=== PATIENT | female | born 1930 | race Caucasian/White ===

== ENCOUNTER 2016-02-12 14:35 | Emergency (ER) | payer OTHER ==
[2016-02-12 15:04] VITALS: TEMP 98.5; BMI 22.0
[2016-02-12] MEDS ORDERED: SODIUM CHLORIDE 500 ML IV STA (15:53)
--- NOTE | 2016-02-12 15:53 | PDOC ---
History of Present Illness - General History Source: Patient Exam Limitations: No Limitations - History of Present Illness Initial Comments: 02/12/16 18:59 The patient is a 85 year old female, with a significant past medical history of HTN who presents to the emergency department with right shoulder.humerus pain for about 3 weeks. She denies any recent injury or trauma to her right shoulder. She denies any numbness and tingling in her UEs. Upon ED arrival the patients HR is around 140. She has mild leg swelling that she noticed yesterday that goes away when she raises her legs. Pt denies any cp, sob, palptiations, fever/chills, cough, hemoptysis, lightheadedness, n/v, diarrhea, melena, bpr, dysuria, frequency. Patient is only sami speaking. Pt was here in the ED for evaluation for pna a few weeks ago but her cough has resolved. No recent hsitory of trauma/falls. Allergies: NKA Past surgical history: None of Significance. Social history: Nonsmoker. Denies EtOH use and drug use. PCP: <Gómez Rincon - Last Filed: 02/12/16 18:59> <Chan Stevenson - Last Filed: 02/15/16 09:12> - General Chief Complaint: Pain, Acute Stated Complaint: PAIN RT ARM Time Seen by Provider: 02/12/16 15:37 Past History <Gómez Rincon - Last Filed: 02/12/16 18:59> - Past Medical History HTN: Yes - Psycho/Social/Smoking Cessation Hx Suicidal Ideation: No Smoking History: Never smoked <Chan Stevenson - Last Filed: 02/15/16 09:12> - Past Medical History Allergies/Adverse Reactions: Allergies Allergy/AdvReac Type Severity Reaction Status Date / Time No Known Allergies Allergy Verified 02/12/16 14:57 Home Medications: Ambulatory Orders Amlodipine Besylate [Norvasc -] 7.5 mg PO DAILY 01/22/16 Azithromycin [Zithromax -] 250 mg PO UTDICT #6 tab 01/22/16 Cholecalciferol (Vitamin D3) [Vitamin D3] 50,000 unit PO Q7D 01/22/16 Multivit with Iron-Minerals [Compete] 1 each PO DAILY 01/22/16 Levofloxacin [Levaquin -] 250 mg PO DAILY #5 tablet 02/12/16 Review of Systems - Review of Systems Able to Perform ROS?: Yes Comments:: 02/12/16 18:59 CONSTITUTIONAL: No reported: Fever, Chills, Diaphoresis, Generalized Weakness, Malaise, Loss of Appetite HEENT: No reported: Rhinorrhea, Nasal Congestion, Throat Pain, Throat Swelling, Difficulty Swallowing, Mouth Swelling, Ear Pain, Eye Pain, Visual Changes CARDIOVASCULAR: No reported: Chest Pain, Syncope, Palpitations, Irregular Heart Rate, Lightheadedness, Peripheral Edema RESPIRATORY: No reported: Cough, Shortness of Breath, SOB with Exertion, Orthopnea, Wheezing , Stridor, Hemoptysis GASTROINTESTINAL: No reported: Abdominal pain, Abdominal Distension, Nausea, Vomiting, Diarrhea, Constipation, Melena, Hematochezia GENITOURINARY: No reported: Dysuria, Frequency, Urgency, Hesitancy, Flank Pain, Genital Pain MUSCULOSKELETAL: Reported: Right shoulder pain. No reported: Myalgia, Arthralgia, Joint Swelling , Back pain, Neck Pain SKIN: No reported: Rash, Itching, Pallor HEMEATOLOGIC/IMMUNOLOGIC: No reported: Easy Bleeding, Easy Bruising, Lymphadenopathy, Frequent infections ENDOCRINE: No reported: Unexplained Weight Gain, Unexplained Weight Loss, Heat Intolerance , Cold Intolerance NEUROLOGIC: No reported: Headache, Focal Weakness, Paresthesias, Vertigo, Lightheadedness, Unsteady Gait, Seizure, Mental Status Changes, Incontinence PSYCHIATRIC: No reported: Anxiety, Depression <Gómez Rincon - Last Filed: 02/12/16 18:59> *Physical Exam - Vital Signs Last Vital Signs Temp Pulse Resp BP Pulse Ox 98.5 F 148 H 18 121/83 98 02/12/16 14:58 02/12/16 14:58 02/12/16 14:58 02/12/16 14:58 02/12/16 14:58 - Physical Exam Comments: 02/12/16 18:59 GENERAL: The patient is awake, alert, and fully oriented, Nontoxic - in no acute distress. HEAD: Normocephalic, atraumatic. EYES: extraocular movements intact, sclera anicteric, conjunctiva clear. ENT: Normal voice, Moist mucous membranes. NECK: Normal range of motion, supple LUNGS: Breath sounds equal, clear to auscultation bilaterally. No wheezes, no rhonchi, no rales. HEART: Tachycardia. Regular rate and rhythm, without murmur, rub or gallop. ABDOMEN: Soft, nontender, normoactive bowel sounds. No guarding, no rebound.No CVA tenderness EXTREMITIES: Trace pitting edema in LEs. Normal range of motion. No clubbing or cyanosis. No cords, erythema, or tenderness. No focal tenderness to her R shoulder. NEUROLOGICAL: No facial asymmetry, Normal speech. PSYCH: Normal mood, normal affect. SKIN: Warm, Dry, normal turgor. <Gómez Rincon - Last Filed: 02/12/16 18:59> - Vital Signs Last Vital Signs Temp Pulse Resp BP Pulse Ox 98.5 F 148 H 18 121/83 98 02/12/16 14:58 02/12/16 14:58 02/12/16 14:58 02/12/16 14:58 02/12/16 14:58 <Chan Stevenson - Last Filed: 02/15/16 09:12> Heart Score/ECG Review - ECG Impressions Comment:: 02/12/16 21:23 Twelve-lead EKG was performed and reviewed by me. There is normal sinus rhythm with a rate of 143 The intervals are normal. There is abnormal R wave progression Impression: sinus tachardua <Chan Stevenson - Last Filed: 02/15/16 09:12> ED Treatment Course - LABORATORY CBC & Chemistry Diagram: 02/12/16 12:59 02/12/16 12:59 - ADDITIONAL ORDERS Additional order review: Laboratory Results 02/12/16 02/12/16 02/12/16 16:00 12:59 12:59 INR PTT (Actin FS) VBG pH 7.37 POC VBG pCO2 52.0 H POC VBG pO2 26.1 L Sodium Potassium Chloride Carbon Dioxide Anion Gap BUN Creatinine Creat Clearance w eGFR Random Glucose Lactic Acid Calcium Total Bilirubin AST ALT Alkaline Phosphatase Creatine Kinase Troponin I Total Protein Albumin TSH 0.42 D Blood Type O POSITIVE Antibody Screen Negative 02/12/16 02/12/16 02/12/16 12:59 12:59 12:59 INR 1.00 PTT (Actin FS) 32.7 VBG pH POC VBG pCO2 POC VBG pO2 Sodium 140 Potassium 4.2 Chloride 103 Carbon Dioxide 31 Anion Gap 6 L BUN 20 H Creatinine 1.4 H D Creat Clearance w eGFR 35.91 Random Glucose 166 H D Lactic Acid 2.142 H* Calcium 9.0 Total Bilirubin 0.3 AST 12 L ALT 21 Alkaline Phosphatase 107 Creatine Kinase 54 Troponin I < 0.02 Total Protein 7.5 Albumin 3.9 TSH Blood Type Antibody Screen 02/12/16 12:59 RBC 4.68 MCV 90.3 MCHC 32.6 RDW 12.8 MPV 7.8 Neutrophils % 62.8 Lymphocytes % 23.6 Monocytes % 11.7 H Eosinophils % 1.1 Basophils % 0.8 - Medications Given in the ED: ED Medications Discontinued Medications Generic Name Dose Route Start Last Admin Trade Name Freq PRN Reason Stop Dose Admin Sodium Chloride 500 mls @ 500 mls/hr 02/12/16 15:53 02/12/16 16:13 Normal Saline - IV 02/12/16 16:52 500 mls/hr ASDIR STA Administration <Gómez Rincon - Last Filed: 02/12/16 18:59> - LABORATORY CBC & Chemistry Diagram: 02/12/16 12:59 02/12/16 12:59 - RADIOLOGY Radiology Studies Ordered: Category Date Time Status CHEST X-RAY PORTABLE* [RAD] Stat Radiology 02/12/16 15:39 Ordered <Chan Stevenson - Last Filed: 02/15/16 09:12> Medical Decision Making - Medical Decision Making 02/12/16 15:54 85y F hx of htn, presents with atraumatic R shoulder pain for several days, pain in hte r shoulder/humerous, pt noted to be tachy to 140s in triage but vitals otherwise stable. on exam pt appaers well, in no acute distress but is tachycardic pt had prior presentation and was noted very tachy and was d/x with pna 2 weeksa go - her sob/cough had improved - now pt denies any cp, sob, palpitations , lightheadedmess, n/v, abd pain, neck pain, back pain, fever/chills, melena/ dysuria. will send labs to r/o metabolic dernagement, anemia, thyroid disorder will give fluids for hydration ekg to r/o arrythmia will obtain xray to r/o fx will reassess A portion of this note was documented by scribe services under my direction. I have reviewed the details of the note, within reason, and agree with the documentation with the following case summary and management plan written by me 02/12/16 20:41 pts labs reviewed ua pending pts lactic acid slightly eelvated HR slightly [id number] down to 130 after 1L of NS. will sign ou tto dr. wang to reasess lactic acid and HR <Chan Stevenson - Last Filed: 02/15/16 09:12> *DC/Admit/Observation/Transfer - Attestations Scribe Attestion: 02/12/16 18:59 Documentation prepared by Gómez Rincon, acting as phlebotomist medical lab assistant for Chan Stevenson MD. <Gómez Rincon - Last Filed: 02/12/16 18:59> <Chan Stevenson - Last Filed: 02/15/16 09:12> Diagnosis at time of Disposition: Bronchitis - Discharge Dispostion Disposition: HOME Condition at time of disposition: Stable - Prescriptions Prescriptions: Levofloxacin [Levaquin -] 250 mg PO DAILY #5 tablet - Referrals Referrals: Minnie Westbrook MD [Primary Care Provider] - - Patient Instructions Printed Discharge Instructions: DI for Acute Bronchitis Additional Instructions: Please give medication as directed and follow up with pt primary care physician Print Language: SAUDI ARABIAN
[2016-02-12 16:23] LABS: BASOPHIL 0.8 % (0-2.0); EOSINOPHIL 1.1 % (0-4.5); MCH 29.5 pg (25.7-33.7); MCHC 32.6 g/dl (32.0-36.0); MEAN CELL VOLUME 90.3 fl (80-96); MEAN PLT VOLUME 7.8 fl (7.5-11.1); NEUTROPHILS 62.8 % (42.8-82.8); PLATELET COUNT 359 K/MM3 (134-434); RDW 12.8 % (11.6-15.6); WHITE BLOOD COUNT 8.9 K/mm3 (4.0-10.0)
[2016-02-12 16:26] LABS: VENOUS PH 7.37 (7.31-7.41)
[2016-02-12 16:43] LABS: ACTIVATED PTT 32.7 SECONDS (26.9-34.4)
[2016-02-12 16:54] LABS: ALBUMIN 3.9 g/dl (3.4-5.0); ANION GAP 6 (8-16); BILIRUBIN,TOTAL 0.3 mg/dL (0.2-1.0); CO2 31 mmol/L (21-32); CREATININE 1.4 mg/dL (0.55-1.02); GLUCOSE,RANDOM 166 mg/dL (74-106); SGOT/AST 12 U/L (15-37); SGPT/ALT 21 U/L (12-78); TOT PROT 7.5 g/dl (6.4-8.2)
[2016-02-12 16:56] LABS: ALK PHOS 107 U/L (45-117); TROPONIN I < 0.02 ng/ml (0.00-0.05)
[2016-02-12] MEDS ORDERED: SODIUM CHLORIDE 1,000 ML IV ONE (19:02)
[2016-02-12 19:07] VITALS: BP 111/49
[2016-02-12 21:22] LABS: URINE APPEARANCE CLEAR; URINE BILIRUBIN NEGATIVE (NEGATIVE); URINE BLOOD 1+ (NEGATIVE); URINE COLOR COLORLESS; URINE GLUCOSE (UA) NEGATIVE (NEGATIVE); URINE KETONE NEGATIVE (NEGATIVE); URINE LEUK ESTERASE NEGATIVE (NEGATIVE); URINE NITRITE NEGATIVE (NEGATIVE); URINE PROTEIN NEGATIVE (NEGATIVE); URINE UROBILINOGEN NEGATIVE E.U./dl (0.2-1.0)
[2016-02-12 21:32] LABS: URINE RBC 2 /hpf (0-3); URINE WBC 1 /hpf (3-5)
--- NOTE | 2016-02-12 23:29 | PDOC ---
*Physical Exam - Vital Signs Last Vital Signs Temp Pulse Resp BP Pulse Ox 98.5 F 142 H 18 111/49 99 02/12/16 14:58 02/12/16 19:07 02/12/16 19:07 02/12/16 19:07 02/12/16 19:07 ED Treatment Course - LABORATORY CBC & Chemistry Diagram: 02/12/16 12:59 02/12/16 12:59 - ADDITIONAL ORDERS Additional order review: Laboratory Results 02/12/16 02/12/16 02/12/16 20:40 20:00 16:00 INR PTT (Actin FS) VBG pH 7.37 POC VBG pCO2 52.0 H POC VBG pO2 26.1 L Sodium Potassium Chloride Carbon Dioxide Anion Gap BUN Creatinine Creat Clearance w eGFR Random Glucose Lactic Acid 1.473 Calcium Total Bilirubin AST ALT Alkaline Phosphatase Creatine Kinase Troponin I Total Protein Albumin TSH Urine Color Colorless Urine Appearance Clear Urine pH 7.0 Ur Specific [place] 1.006 Urine Protein Negative Urine Glucose (UA) Negative Urine Ketones Negative Urine Blood 1+ H Urine Nitrite Negative Urine Bilirubin Negative Urine Urobilinogen Negative Ur Leukocyte Esterase Negative Urine RBC 2 Urine WBC 1 Ur Epithelial Cells Rare Blood Type Antibody Screen 02/12/16 02/12/16 02/12/16 12:59 12:59 12:59 INR PTT (Actin FS) VBG pH POC VBG pCO2 POC VBG pO2 Sodium Potassium Chloride Carbon Dioxide Anion Gap BUN Creatinine Creat Clearance w eGFR Random Glucose Lactic Acid 2.142 H* Calcium Total Bilirubin AST ALT Alkaline Phosphatase Creatine Kinase Troponin I Total Protein Albumin TSH 0.42 D Urine Color Urine Appearance Urine pH Ur Specific [place] Urine Protein Urine Glucose (UA) Urine Ketones Urine Blood Urine Nitrite Urine Bilirubin Urine Urobilinogen Ur Leukocyte Esterase Urine RBC Urine WBC Ur Epithelial Cells Blood Type O POSITIVE Antibody Screen Negative 02/12/16 02/12/16 12:59 12:59 INR 1.00 PTT (Actin FS) 32.7 VBG pH POC VBG pCO2 POC VBG pO2 Sodium 140 Potassium 4.2 Chloride 103 Carbon Dioxide 31 Anion Gap 6 L BUN 20 H Creatinine 1.4 H D Creat Clearance w eGFR 35.91 Random Glucose 166 H D Lactic Acid Calcium 9.0 Total Bilirubin 0.3 AST 12 L ALT 21 Alkaline Phosphatase 107 Creatine Kinase 54 Troponin I < 0.02 Total Protein 7.5 Albumin 3.9 TSH Urine Color Urine Appearance Urine pH Ur Specific [place] Urine Protein Urine Glucose (UA) Urine Ketones Urine Blood Urine Nitrite Urine Bilirubin Urine Urobilinogen Ur Leukocyte Esterase Urine RBC Urine WBC Ur Epithelial Cells Blood Type Antibody Screen 02/12/16 12:59 RBC 4.68 MCV 90.3 MCHC 32.6 RDW 12.8 MPV 7.8 Neutrophils % 62.8 Lymphocytes % 23.6 Monocytes % 11.7 H Eosinophils % 1.1 Basophils % 0.8 - Medications Given in the ED: ED Medications Discontinued Medications Generic Name Dose Route Start Last Admin Trade Name Freq PRN Reason Stop Dose Admin Sodium Chloride 500 mls @ 500 mls/hr 02/12/16 15:53 02/12/16 16:13 Normal Saline - IV 02/12/16 16:52 500 mls/hr ASDIR STA Administration Sodium Chloride 1,000 mls @ 1,000 mls/hr 02/12/16 19:02 02/12/16 19:06 Normal Saline - IV 02/12/16 20:01 1,000 mls/hr .Q1H ONE Administration *DC/Admit/Observation/Transfer Diagnosis at time of Disposition: Bronchitis - Discharge Dispostion Disposition: HOME Condition at time of disposition: Stable Admit: No - Prescriptions Prescriptions: Levofloxacin [Levaquin -] 250 mg PO DAILY #5 tablet - Referrals Referrals: Minnie Westbrook MD [Primary Care Provider] - - Patient Instructions Printed Discharge Instructions: DI for Acute Bronchitis Additional Instructions: Please give medication as directed and follow up with pt primary care physician Print Language: MALIAN - Post Discharge Activity
[2016-02-12] MEDS ORDERED: LEVOFLOXACIN 250 MG TABLET (FP) PO ONE (23:32)
[2016-02-12] MEDS ORDERED: LEVOFLOXACIN 250 MG TABLET (FP) ONE (23:41)
[2016-02-12 23:58] VITALS: PULSE 118
--- NOTE | 2016-02-14 15:14 | EKG ---
Test Reason : Blood Pressure : / mmHG Vent. Rate : 143 BPM Atrial Rate : 143 BPM P-R Int : 128 ms QRS Dur : 084 ms QT Int : 284 ms P-R-T Axes : 065 -23 090 degrees QTc Int : 438 ms SINUS TACHYCARDIA POSSIBLE LEFT ATRIAL ENLARGEMENT ANTEROSEPTAL INFARCT (CITED ON OR BEFORE 22-JAN-2016) ABNORMAL ECG WHEN COMPARED WITH ECG OF 22-JAN-2016 16:31, NO SIGNIFICANT CHANGE WAS FOUND Confirmed by JOLIE RIZVI MD ([id number]) on 02/14/2016 3:13:26 PM Referred By: Confirmed By:JOLIE RIZVI MD
== END 2016-02-12 23:56 | disposition home or self-care (01) ==
LOC: JER 14:35
PROC: 3E0337Z Introduction of Electrolytic and Water Balance Substance into Peripheral Vein, Percutaneous Approach (ICD-10-PCS; principal; 2016-02-12)
DX: J40 Bronchitis, not specified as acute or chronic (principal); I10 Essential (primary) hypertension
CPT/HCPCS: 36415; 71010-TC; 73030-TC-RT; 73060-TC-RT; 80053; 81003; 81015; 82550; 82803; 83605; 84443; 84484; 85025; 85610; 85730; 86850; 86900; 86901; 87040; 87086; 93005; 93010; 96360; 96361; 99284-25

== ENCOUNTER → 2016-08-25 | Day surgery (SDC) | payer OTHER ==
--- NOTE | 2016-08-26 14:58 | PATH ---
Cytology Non-Gynecological Report Patient Name: BARBI LEONARD [facility]. Rec. #: [id number] /Age/Gender: 1930 (Age: 86) / F Account: [id number] Location: RADIOLOGY Taken: 08/25/2016 Received: 08/25/2016 Reported: 08/26/2016 Physicians: Adriana Shafer M.D. Specimen(s) Received LEFT THYROID FNA Clinical History Left thyroid nodule, 3.12 x 1.93 x 2.34 cm Final Diagnosis THYROID GLAND, LEFT LOBE, US GUIDED FINE NEEDLE ASPIRATION BIOPSY: SATISFACTORY FOR EVALUATION. NO MALIGNANT CELLS IDENTIFIED. CONSISTENT WITH NODULAR HYPERPLASIA (BENIGN FOLLICULAR NODULE, BETHES[place] CATEGORY II, BENIGN), SEE COMMENT. Comment: The smears and the cell block show clusters of bland appearing follicular epithelial cells arranged in macro-and microfollicles and flat sheets. Colloid is present. Electronically Signed Robert Vargas M.D. Gross Description Received are four air dried smears, four smears in 95% alcohol, and 20 cc of bloody fluid in formalin. Four diff-quik stained slides, four Pap stained slides and one cell block are made.
== END | disposition home or self-care (01) ==
LOC: JRADIR 11:35
PROVIDERS: ATTEND Internal Medicine Endocrinology, Diabetes & Metabolism
PROC: 0G9G3ZX Drainage of Left Thyroid Gland Lobe, Percutaneous Approach, Diagnostic (ICD-10-PCS; principal; 2016-08-25)
PROC: BG44ZZZ Ultrasonography of Thyroid Gland (ICD-10-PCS; 2016-08-25)
DX: E04.1 Nontoxic single thyroid nodule (principal)
CPT/HCPCS: 76942; 88173; 88305-TC

== ENCOUNTER 2019-02-21 14:27 | Emergency (ER) | payer OTHER ==
[2019-02-21 14:36] VITALS: BP 130/79; PULSE 90; TEMP 97.6; BMI 24.0
[2019-02-21] MEDS ORDERED: guaiFENesin/D-METHORPHAN HB 10 ML UNIT-DOSE CUPS PO ONE (17:33)
[2019-02-21] MEDS ORDERED: ACETAMINOPHEN 325 MG TABLET (FP) PO ONE (17:33)
--- NOTE | 2019-02-21 17:33 | PDOC ---
History of Present Illness - General Chief Complaint: Cold Symptoms Stated Complaint: COUGH Time Seen by Provider: 02/21/19 16:32 History Source: Patient Exam Limitations: No Limitations - History of Present Illness Initial Comments: 02/21/19 17:28 88 year old female with medical history of HTN, Chol presents for intermittent coughing x 1 month with no fever, chills, shortness of breath or chest pain. As per patient producing yellowish phelgm. States no loss of appetite. Is this a multiple visit Asthma Patient?: No Timing/Duration: reports: week Severity: reports: mild Possible Cause: Yes: no prior episodes Associated Symptoms: reports: denies symptoms Past History - Travel Traveled outside of the country in the last 30 days: No Close contact w/someone who was outside of country & ill: No - Past Medical History Allergies/Adverse Reactions: Allergies Allergy/AdvReac Type Severity Reaction Status Date / Time No Known Allergies Allergy Verified 02/21/19 14:36 Home Medications: Ambulatory Orders Acetaminophen 650 mg PO Q4HWA #20 tablet 02/21/19 Atorvastatin Ca [Lipitor] 20 mg PO HS 02/21/19 Guaifenesin [Robitussin] 10 ml PO ASDIR #1 bottle 02/21/19 Losartan/Hydrochlorothiazide [Losartan-Hctz 100-25 mg Tab] 1 each PO DAILY 02/21 Metoprolol Succinate [Toprol Xl] 100 mg PO DAILY 02/21/19 Spironolactone [Aldactone] 50 mg PO DAILY 02/21/19 COPD: No HTN: Yes - Psycho Social/Smoking Cessation Hx Smoking History: Never smoked Hx Alcohol Use: No Drug/Substance Use Hx: No Substance Use Type: None Respiratory Specific PMHX - Complaint Specific PMHX Hx Airway Support: No Hx Vaping: No Hx Allergic Rhinitis: No Hx Bronchitis: No Hx Pulmonary Embolus: No Review of Systems - Review of Systems Able to Perform ROS?: Yes Is the patient limited Kosovan proficient: No Constitutional: No: Chills, Fever, Malaise, Night Sweats, Weakness HEENTM: No: Double Vision, Ear Pain, Ear Discharge, Nose Pain, Nose Congestion, Throat Pain, Throat Swelling, Mouth Pain Respiratory: Yes: Cough. No: Orthopnea, Shortness of Breath Cardiac (ROS): No: Chest Pain, Edema, Irregular Heart Rate ABD/GI: No: Nausea, Poor Appetite, Poor Fluid Intake, Vomiting : No: Burning, Dysuria, Discharge, Pain Musculoskeletal: No: Back Pain, Gout, Joint Pain, Muscle Pain, Muscle Weakness Integumentary: No: Bruising, Erythema, Flushing Neurological: No: Numbness, Paresthesia, Seizure, Tingling, Tremors Psychiatric: No: Frequent Crying, Stressors *Physical Exam - Vital Signs Last Vital Signs Temp Pulse Resp BP Pulse Ox 97.6 F 90 18 130/79 98 02/21/19 14:33 02/21/19 14:33 02/21/19 14:33 02/21/19 14:33 02/21/19 14:33 - Physical Exam General Appearance: Yes: Nourished, Appropriately Dressed HEENT: positive: TMs Normal, Pharynx Normal Neck: positive: Supple. negative: Lymphadenopathy (R), Lymphadenopathy (L) Respiratory/Chest: positive: Lungs Clear Cardiovascular: positive: Regular Rhythm, Regular Rate Neurologic: positive: Fully Oriented, Alert ED Treatment Course - RADIOLOGY Radiology Studies Ordered: Category Date Time Status CHEST PA & LAT [RAD] Stat Radiology 02/21/19 16:46 Taken Medical Decision Making - Medical Decision Making 02/21/19 17:32 02/21/19 17:28 88 year old female with medical history of HTN, Chol presents for intermittent coughing x 1 month with no fever, chills, shortness of breath or chest pain. As per patient producing yellowish phelgm. States no loss of appetite. Imp: URI plan: chest xray antiussive analgesia Discharge - Discharge Information Problems reviewed: Yes Clinical Impression/Diagnosis: Viral URI with cough Condition: Good Disposition: HOME - Admission No - Additional Discharge Information Prescriptions: Acetaminophen 650 mg PO Q4HWA #20 tablet Guaifenesin [Robitussin] 10 ml PO ASDIR #1 bottle - Follow up/Referral Referrals: Bakari Walters II, DO [Primary Care Provider] - Call tomorrow - Patient Discharge Instructions Patient Printed Discharge Instructions: DI for Viral Upper Respiratory Infection -- Adult Additional Instructions: Drink plenty of fluids Use humidifier in the home Call primary physician for appointment - Post Discharge Activity Work/Back to School Note: Back to Work
[2019-02-21] MEDS ORDERED: guaiFENesin 200 MG/10 ML 10 ML UNIT-DOSE CUPS PO ONE (17:36)
[2019-02-21] MEDS ORDERED: ACETAMINOPHEN 325 MG TABLET (FP) ONE (17:36)
[2019-02-21] MEDS ORDERED: guaiFENesin 200 MG/10 ML 10 ML UNIT-DOSE CUPS ONE (17:39)
== END 2019-02-21 17:52 | disposition home or self-care (01) ==
LOC: JERFT 14:27
DX: J06.9 Acute upper respiratory infection, unspecified (principal); B97.89 Other viral agents as the cause of diseases classified elsewhere; I10 Essential (primary) hypertension; E78.00 Pure hypercholesterolemia, unspecified
CPT/HCPCS: 71046-TC-FY; 99281-25

== ENCOUNTER 2019-12-14 04:34 | Day surgery (SDC) | payer OTHER ==
--- OUTSIDE RECORDS SUMMARY | 2019-12-08 14:27 | XMS ---
:1930 Author Organization [facility] Support Name Relationship Address Phone UE Unavailable Unavailable Unavailable KAILEY NUNEZ DAUGHTER [address] [facility] [address] [phone] [place] [address] KAILEY NUNEZ Unavailable [address] [facility] [place] [address] Re-disclosure Warning The records that you are about to access may contain information from federally- assisted alcohol or drug abuse programs. If such information is present, then the following federally mandated warning applies: This information has been disclosed to you from records protected by federal confidentiality rules (42 CFR part 2). The federal rules prohibit you from making any further disclosure of this information unless further disclosure is expressly permitted by the written consent of the person to whom it pertains or as otherwise permitted by 42 CFR part 2. A general authorization for the release of medical or other information is NOT sufficient for this purpose. The Federal rules restrict any use of the information to criminally investigate or prosecute any alcohol or drug abuse patient.The records that you are about to access may contain highly sensitive health information, the redisclosure of which is protected by Article 27-F of the [facility] Public Health law. If you continue you may haveaccess to information: Regarding HIV / AIDS; Provided by facilities licensed or operated by the [facility] Office of Mental Health; or Provided by the [facility] Office for People With Developmental Disabilities. If such information is present, then the following [facility] mandated warning applies: This information has been disclosed to you from confidential records which are protected by state law. State law prohibits you from making any further disclosure of this information without the specific written consent of the person to whom it pertains, or as otherwise permitted by law. Any unauthorized further disclosure in violation of state law may result in a fine or care home sentence or both. A general authorization for the release of medical or other information is NOT sufficient authorization for further disclosure. Encounters Encounter Providers Location Date Indications Data Source(s ) Outpatient [facility] 12/22/2018 eCW3 ([facility] 12:00:00 AM [facility] EST - [facility]) 12/22/2018 12:00:00 AM EST Outpatient [facility] 12/17/2018 eCW3 ([facility] 12:00:00 [facility] EST - Care) 12/17/2018 12:00:00 AM EST (ROV) Regular [facility] 11/26/2018 eCW3 ([facility]28 12:00:00 AM [facility] EDT - Care) 11/26/2018 12:00:00 AM EDT Immunizations Vaccine Date Status Description Data Source(s) pneumococcal 04/15/2019 completed eCW3 ([facility] guillermo polysaccharide PPV23 12:24:00 PM EST [facility] Care) pneumococcal 04/15/2019 completed eCW3 ([facility] guillermo polysaccharide PPV23 12:24:00 PM [facility]) pneumococcal 04/15/2019 completed eCW3 ([facility] guillermo polysaccharide PPV23 12:24:00 PM EST [facility]) Medications Medication Brand Start Product Dose Route Administrative Pharmacy [facility] Indications Reaction Description Data Name Date Form Instructions Instructions Source(s) benzonatate Tessal .0 active Tessalo n eCW3 100 MG Oral on 2019 {caps Perles 100 ( [facility] Caps[facility] Perles 12:00: ule_a MG [facility] [Tessalon 100 MG 00 AM [facility] Perles] EDT ded} Care) Tessalon Perles 100 MG benzonatate Tessal .0 active Tessalo n eCW3 100 MG Oral on 2019 {caps Perles 100 ( [facility] Capsule Perles 12:00: ule_a MG [facility] [Tessalon 100 MG 00 AM [facility] Perles] EDT ded} Care) Tessalon Perles 100 MG Levofloxaci Levofl .0 active Levoflo xacin eCW3 n 750 MG oxacin 2019 {tabl 750 MG ([facility] Oral Tablet 750 MG 12:00: et} [facility] r 00 AM Health EDT Care) Acetaminoph UNK .0 active Acetamino phe eCW3 en 500 MG 2019 {caps n 500 MG ([facility] 12:00: ule_a [facility] 00 AM s_[facility] EDT ded} Care) benzonatate Tessal .0 active Tessalo n eCW3 100 MG Oral on 2019 {caps Perles 100 ( [facility] Capsule Perles 12:00: ule_a MG [facility] [Tessalon 100 MG 00 AM s[facility] Health Perles] EDT ded} Care) Tessalon Perles 100 MG benzonatate Tessal .0 active Tessalo n eCW3 100 MG Oral on 2020 {caps Perles 100 ( [facility] Capsule Perles 12:00: ule_a MG [facility] [Tessalon 100 MG 00 AM s[facility] Perles] EDT ded} Care) Tessalon Perles 100 MG 200 ACTUAT Ventol .0 active Ventolin HFA eCW3 Albuterol in HFA 2019 {puff 108 (90 ([facility] 0.09 108 12:00: s_as_ Base) [facility] MG/ACTUAT (90 00 AM neede MCG/ACT Healt h Metered Base) EST d} Care) Dose MCG/AC Inhaler T [Ventolin] Ventolin HFA 108 (90 Base) MCG/ACT 200 ACTUAT Ventol 2.0 active Ventolin HFA eCW3 Albuterol in HFA 2019 {puff 108 (90 ([facility] 0.09 108 12:00: s_as_ Base) [facility] MG/ACTUAT (90 00 AM neede MCG/ACT Healt h Metered Base) EST d} Care) Dose MCG/AC Inhaler T [Ventolin] Ventolin HFA 108 (90 Base) MCG/ACT 200 ACTUAT Ventol 2.0 active Ventolin HFA eCW3 Albuterol in HFA 2020 {puff 108 (90 ([facility] 0.09 108 12:00: s_as_ Base) [facility] MG/ACTUAT (90 00 AM neede MCG/ACT Healt h Metered Base) EST d} Care) Dose MCG/AC Inhaler T [Ventolin] Ventolin HFA 108 (90 Base) MCG/ACT 200 ACTUAT Ventol 2.0 active Ventolin HFA eCW3 Albuterol in HFA 2020 {puff 108 (90 ([facility] 0.09 108 12:00: s_as_ Base) [facility] MG/ACTUAT (90 00 AM neede MCG/ACT Healt h Metered Base) EST d} Care) Dose MCG/AC Inhaler T [Ventolin] Ventolin HFA 108 (90 Base) MCG/ACT AeroChamber AeroCh 03/14/ active AeroCha mber eCW3 MV - esperanza 2020 MV - ([facility] MV - 12:00: [facility] 00 AM Health EST Care) montelukast Naeem .0 active Montelu kast eCW3 10 MG Oral ukast 2019 {tabl Sodium 10 MG ([facility] Tablet Sodium 12:00: et} [facility] Montelukast 10 MG 00 AM Health Sodium 10 EST Care) MG montelukast Naeem .0 active Montelu kast eCW3 10 MG Oral ukast 2019 {tabl Sodium 10 MG ([facility] Tablet Sodium 12:00: et} [facility] Montelukast 10 MG 00 AM Health Sodium 10 EST Care) MG AeroChamber AeroCh 03/14/ active AeroCha mber eCW3 MV - esperanza 2020 MV - ([facility] MV - 12:00: [facility] 00 AM Health EST Care) AeroChamber AeroCh 03/14/ active AeroCha mber eCW3 MV - esperanza 2020 MV - ([facility] MV - 12:00: [facility] 00 AM Health EST Care) AeroChamber AeroCh 03/14/ active AeroCha mber eCW3 MV - esperanza 2020 MV - ([facility] MV - 12:00: [facility] 00 AM Health EST Care) montelukast Naeem .0 active Montelu kast eCW3 10 MG Oral ukast 2019 {tabl Sodium 10 MG ([facility] Tablet Sodium 12:00: et} [facility] Montelukast 10 MG 00 AM Health Sodium 10 EST Care) MG montelukast Naeem .0 active Montelu kast eCW3 10 MG Oral ukast 2019 {tabl Sodium 10 MG ([facility] Tablet Sodium 12:00: et} [facility] Montelukast 10 MG 00 AM Health Sodium 10 EST Care) MG Rosuvastati Cresto .0 active Crestor 20 eCW3 n calcium r 2019 {tabl MG ([facility] 20 MG Oral MG 12:00: et} [facility] Tablet 00 AM Health [Crestor] EST Care) Crestor 20 MG Rosuvastati Cresto .0 active Crestor 20 eCW3 n calcium r 20 2019 {tabl MG ([facility] 20 MG Oral MG 12:00: et} [facility] Tablet 00 AM Health [Crestor] EST Care) Crestor 20 MG Rosuvastati Cresto .0 active Crestor 20 eCW3 n calcium r 2019 {tabl MG ([facility] 20 MG Oral MG 12:00: et} [facility] Tablet 00 AM Health [Crestor] EST Care) Crestor 20 MG Rosuvastati Cresto .0 active Crestor 20 eCW3 n calcium r 2019 {tabl MG ([facility] 20 MG Oral MG 12:00: et} [facility] Tablet 00 AM Health [Crestor] EST Care) Crestor 20 MG Metformin Metfor .0 active Metformin eCW3 hydrochlori min 2018 {tabl HCl 500 MG ( [facility] de 500 MG HCl 12:00: et_wi [facility] Oral Tablet 500 MG 00 AM _a_ Heal Metformin EST meal} Care) HCl 500 MG Spironolact Spiron .0 active Spirono lacto eCW3 one 50 MG olacto 2018 {tabl ne 50 MG ([facility] Oral Tablet ne 50 12:00: et_wi [facility] r MG 00 AM th_fo Health EST od} Care) Metformin Metfor .0 active Metformin eCW3 hydrochlori min 2018 {tabl HCl 500 MG ( [facility] de 500 MG HCl 12:00: et_wi [facility] Oral Tablet 500 MG 00 AM _a_ Heal Metformin EST meal} Care) HCl 500 MG Spironolact Spiron .0 active Spirono lacto eCW3 one 50 MG olacto 2018 {tabl ne 50 MG ([facility] Oral Tablet ne 50 12:00: et_wi [facility] MG 00 AM th_fo Health EST od} Care) Spironolact Spiron .0 active Spirono lacto eCW3 one 50 MG olacto 2018 {tabl ne 50 MG ([facility] Oral Tablet ne 50 12:00: et_wi [facility] MG 00 AM _fo Health EST od} Care) Metformin Metfor .0 active Metformin eCW3 hydrochlori min 2018 {tabl HCl 500 MG ( [facility] de 500 MG HCl 12:00: et_wi [facility] Oral Tablet 500 MG 00 AM _a Metformin EST meal} Care) HCl 500 MG Metformin Metfor .0 active Metformin eCW3 hydrochlori min 2018 {tabl HCl 500 MG ( [facility] de 500 MG HCl 12:00: et_wi [facility] Oral Tablet 500 MG 00 AM _a_ Metformin EST meal} Care) HCl 500 MG Spironolact Spiron .0 active Spirono lacto eCW3 one 50 MG olacto 2018 {tabl ne 50 MG ([facility] Oral Tablet ne 50 12:00: et_wi [facility] MG 00 AM _fo Health EST od} Care) Hydrochloro Losart .0 active Losarta n eCW3 thiazide 2018 {tabl Potassium-HC ([facility] MG / Potass 12:00: et} TZ 100-25 MG Destiny er Losartan ium-HC 00 AM Health Potassium TZ EDT Care) 100 MG Oral 100-25 Tablet MG Losartan Potassium-H CTZ 100-25 MG Hydrochloro [facility] .0 active Losarta n eCW3 thiazide 2018 {tabl Potassium-HC ([facility] MG / Potass 12:00: et} TZ 100-25 MG Destiny er Losartan ium-HC 00 AM Health Potassium TZ EDT Care) 100 MG Oral 100-25 Tablet MG Losartan Potassium-H CTZ 100-25 MG Hydrochloro Losart .0 active Losarta n eCW3 thiazide 25 2018 {tabl Potassium-HC ([facility] MG / Potass 12:00: et} TZ 100-25 MG Destiny er Losartan ium-HC 00 AM Health Potassium TZ EDT Care) 100 MG Oral 100-25 Tablet MG Losartan Potassium-H CTZ 100-25 MG Hydrochloro Losart .0 active Losarta n eCW3 thiazide 25 2018 {tabl Potassium-HC ([facility] MG / Potass 12:00: et} TZ 100-25 MG Destiny er Losartan ium-HC 00 AM Health Potassium TZ [facility]) 100 MG Oral 100-25 Tablet MG Losartan Potassium-H CTZ 100-25 MG Insurance Providers Payer name Policy type Policy ID Covered Covered democrat's Policy P joao / Coverage democrat ID relationship to He[facility] Inf ormation type hebert [facility] MED[facility] [id number] SP [id number] HMO [facility] [id number] SP [id number] CARE [facility] [id number] SP [id number] CARE [facility] [id number] SP [id number] HEALTH NON CAP Problems, Conditions, and Diagnoses Code Display Name Description Problem Type Effective Dates Data Source(s) U07.1 COVID-19 virus COVID-19 virus Problem 06/06/2019 eCW3 ( [facility] detected detected 12:00:00 AM 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 Procedure Social History Code Duration Value Status Description Data Source(s ) Smoking 06/06/2019 12:00:00 Former Smoker completed Former Smoker eCW3 ([facility]) Smoking 06/06/2019 12:00:00 Former Smoker completed Former Smoker eCW3 ([facility]) Smoking 06/06/2019 12:00:00 Former Smoker completed Former Smoker eCW3 ([facility]) Smoking 06/06/2019 12:00:00 Former Smoker completed Former Smoker eCW3 ([facility]) Vital Signs ID Date Data Source UNK Name Value Range Interpretation Code Description Data Source(s) Diastolic blood 82 mm[Hg] 82 mm[Hg] eCW3 ([facility]) Systolic blood 133 mm[Hg] 133 mm[Hg] eCW3 ([facility]) Body temperature 97.4 [degF] 97.4 [degF] eCW3 ( [facility]) Heart rate 20 /min 20 /min eCW3 ([facility]) Body mass index 25.91 kg/m2 25.91 kg/m2 eCW3 ([facility] (BMI) [Ratio] [facility]) Body weight 124 [lb_av] 124 [lb_av] eCW3 ([facility]) Body height 58 [in_i] 58 [in_i] eCW3 ([facility]) Diastolic blood 92 mm[Hg] 92 mm[Hg] eCW3 ([facility]) Systolic blood 160 mm[Hg] 160 mm[Hg] eCW3 ([facility]) Body temperature 97.6 [degF] 97.6 [degF] eCW3 ( [facility]) Heart rate 20 /min 20 /min eCW3 ([facility]) Body mass index 25.91 kg/m2 25.91 kg/m2 eCW3 ([facility] (BMI) [Ratio] [facility]) Body weight 124 [lb_av] 124 [lb_av] eCW3 ([facility]) Body height 58 [in_i] 58 [in_i] eCW3 ([facility]) Diastolic blood 102 mm[Hg] 102 mm[Hg] eCW3 ([facility]) Systolic blood 171 mm[Hg] 171 mm[Hg] eCW3 ([facility]) Body temperature 97.8 [degF] 97.8 [degF] eCW3 ( [facility]) Heart rate 20 /min 20 /min eCW3 ([facility]) Body mass index 25.91 kg/m2 25.91 kg/m2 eCW3 ([facility] (BMI) [Ratio] [facility]) Body weight 124 [lb_av] 124 [lb_av] eCW3 ([facility]) Body height 58 [in_i] 58 [in_i] eCW3 ([facility]) Patient Treatment Plan of Care Planned Activity Planned Date Details Description Data Source (s) benzonatate 100 MG Oral 05/30/2019 eCW3 ([facility] Caps[facility] [Tessalon Perles] 12:00:00 AM [facility]) benzonatate 100 MG Oral 05/30/2019 eCW3 ([facility] [Tessalon Perles] 12:00:00 AM [facility]) benzonatate 100 MG Oral 05/30/2019 eCW3 ([facility] Caps[facility] [Tessalon Perles] 12:00:00 AM [facility]) 200 ACTUAT Albuterol 0.09 04/15/2019 eC W3 ([facility] MG/ACTUAT Metered Dose 12:00:00 AM [facility]) Inhaler [Ventolin] 200 ACTUAT Albuterol 0.09 04/15/2019 eC W3 ([facility] MG/ACTUAT Metered Dose 12:00:00 AM [facility]) Inhaler [Ventolin] 200 ACTUAT Albuterol 0.09 04/15/2019 eC W3 ([facility] MG/ACTUAT Metered Dose 12:00:00 AM [facility]) Inhaler [Ventolin] montelukast 10 MG Oral Tablet 03/14/2019 eCW3 ([facility] 12:00:00 AM [facility]) montelukast 10 MG Oral Tablet 03/14/2019 eCW3 ([facility] [place] 12:00:00 AM [facility]) montelukast 10 MG Oral Tablet 03/14/2019 eCW3 ([facility] 12:00:00 AM [facility]) Rosuvastatin calcium 20 MG 03/03/2019 e CW3 ([facility] Oral Tablet [Crestor] 12:00:00 AM [facility]) Rosuvastatin calcium 20 MG 03/03/2019 e CW3 ([facility] Oral Tablet [Crestor] 12:00:00 AM [facility]) Rosuvastatin calcium 20 MG 03/03/2019 e CW3 ([facility] Oral Tablet [Crestor] 12:00:00 AM [facility]) Spironolactone 50 MG Oral 12/17/2018 eC W3 ([facility] Tablet 12:00:00 AM [facility]) Metformin hydrochloride 500 12/17/2018 eCW3 ([facility] MG Oral Tablet 12:00:00 AM [facility] Health Car e) Spironolactone 50 MG Oral 12/17/2018 eC W3 ([facility] Tablet 12:00:00 AM [facility]) Metformin hydrochloride 500 12/17/2018 eCW3 ([facility] MG Oral Tablet 12:00:00 AM [facility] Health Car e) Metformin hydrochloride 500 12/17/2018 eCW3 ([facility] MG Oral Tablet 12:00:00 AM [facility] Health Car e) Spironolactone 50 MG Oral 12/17/2018 eC W3 ([facility] Tablet 12:00:00 AM [facility]) Hydrochlorothiazide 25 MG / 11/26/2018 eCW3 ([facility] Losartan Potassium 100 MG 12:00:00 AM [facility]) Oral Tablet Hydrochlorothiazide 25 MG / 11/26/2018 eCW3 ([facility] Losartan Potassium 100 MG 12:00:00 AM [facility]) Oral Tablet Hydrochlorothiazide 25 MG / 11/26/2018 eCW3 ([facility] Losartan Potassium 100 MG 12:00:00 AM [facility]) Oral Tablet
[2019-12-13 16:36] VITALS: BMI 23.4
[~2019-12-14 04:34] MED LIST: BSS (NA/CA/MG/K) BALANCED SALT SOLUTION OPHTH SOLN 15 ML BOTTLE OD ONE; BUPIVACAINE HCL/PF 0.75% 10 ML VIAL RB ONE; CHONDROITIN SU A/HYALUR SOD 1 KIT IO ONE; EPINEPHrine/PF 1 MG/1 ML (1:1,000) AMPULE SQ ONE; LIDOCAINE HCL 1% PRESERVATIVE FREE - 30ML VIAL IO ONE; LIDOCAINE HCL/PF 2% SDV 5ML VIAL PNB ONE; POVIDONE-IODINE 5% OPHTHALMIC PREP 30 ML SOLUTION OD ONE
--- OUTSIDE RECORDS SUMMARY | 2019-12-14 04:37 | XMS ---
:1930 Author Organization [facility] Support Name Relationship Address Phone UE, UNEMPLOYED Unavailable Unavailable Unavailable UE Unavailable Unavailable Unavailable KAILEY NUNEZ DAUGHTER [address] [facility] [address] [phone] [place] [address] kailey nunez Unavailable [address] [facility] [place] [address] Re-disclosure Warning The records that you are [...] is protected by Article 27-F of the [facility] Public Health law. If you continue you may haveaccess to information: Regarding HIV / AIDS; Provided by facilities licensed or operated by the [facility] Office of Mental Health; or Provided by the [facility] Office for People With Developmental Disabilities. If such information is present, then the following [facility] mandated warning applies: This information has [...] law may result in a fine or penitentiary sentence or both. A general authorization for the release of medical or other information is NOT sufficient authorization for further disclosure. Encounters Encounter Providers Location Date Indications Data Source(s ) Outpatient [facility] 12/22/2018 eCW3 ([facility] 12:00:00 AM [facility] EST - [facility]) 12/22/2018 12:00:00 AM EST Outpatient [facility] 12/17/2018 eCW3 ([facility] 12:00:00 AM [facility] EST - Care) 12/17/2018 12:00:00 AM EST (ROV) Regular [facility] 11/26/2018 eCW3 ([facility] A28 12:00:00 AM [facility] EDT - Care) 11/26/2018 12:00:00 AM EDT [...] Brand Start Product Dose Route Administrative Pharmacy [facility] Indications Reaction Description Data Name Date Form [...] Tessalon Perles 100 MG 200 ACTUAT Ventol 2.0 active Ventolin HFA [...] active AeroCha mber eCW3 MV - esperanza 2019 MV - ([facility] - 12:00: [facility] [...] Tablet 500 MG 00 AM _a_ Heal th Metformin EST meal} Care) HCl 500 MG [...] Tablet 500 MG 00 AM _a_ Heal th Metformin EST meal} Care) HCl 500 MG [...] 00 AM th_fo Health EST od} Care) Hydrochloro Losart .0 [...] name Policy type Policy ID Covered Covered alliance party's Policy P joao / Coverage alliance party ID relationship to Hebert Inf ormation type hebert MVP [place]ICAID [id number] SP [id number] HMO [facility] MEDICAID [id number] SP [id number] [facility] [id number] SP [id number] CARE [facility] [id number] SP [id number] CARE [facility] [id number] SP [id number] HEALTH NON CAP Problems, Conditions, and Diagnoses Code Display Name Description Problem Type Effective Dates Data Source(s) U07.1 COVID-19 virus COVID-19 virus Problem 06/06/2019 eCW3 ( [facility] detected detected 12:00:00 AM [facility]) H26.8 Cataract, mature Cataract, mature Problem 04/11/2019 eC W3 ([facility] 12:00:00 AM [facility]) 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 ID Date Data Source [id number] 06/01/2019 12:00:00 AM EDT [facility] Name Value Range Interpretation Code Description Data Eli rce(s) Supporting Document(s ) 2019-nCoV [facility] RNA XXX GARFIELD+probe- Imp This lab [facility] and reported by [employer]. Procedure Social History Code Duration Value Status Description Data Source(s ) Smoking 06/06/2019 12:00:00 Former Smoker completed Former Smoker eCW3 ([facility]) Smoking 06/06/2019 12:00:00 Former Smoker completed Former Smoker eCW3 ([facility]) Smoking 06/06/2019 12:00:00 Former Smoker completed Former Smoker eCW3 ([facility]) Smoking 06/06/2019 12:00:00 Former Smoker completed Former Smoker eCW3 ([facility]) Vital Signs ID Date Data Source UNK Name Value Range Interpretation Code Description Data Source(s) Diastolic blood 82 mm[Hg] 82 mm[Hg] eCW3 ([facility]) Systolic blood 133 mm[Hg] 133 mm[Hg] eCW3 ([facility]) Body temperature 97.4 [degF] 97.4 [degF] eCW3 ( [facility]) Heart rate 20 /min 20 /min eCW3 ([facility]) Body mass index 25.91 kg/m2 25.91 kg/m2 eCW3 ([facility] (BMI) [Ratio] [facility]) Body weight 124 [lb_av] 124 [lb_av] eCW3 ([facility]) Body height 58 [in_i] 58 [in_i] eCW3 ([facility]) Diastolic blood 92 mm[Hg] 92 mm[Hg] eCW3 ([facility]) Systolic blood 160 mm[Hg] 160 mm[Hg] eCW3 ([facility]) Body temperature 97.6 [degF] 97.6 [degF] eCW3 ( [facility]) Heart rate 20 /min 20 /min eCW3 ([facility]) Body mass index 25.91 kg/m2 25.91 kg/m2 eCW3 ([facility] (BMI) [Ratio] [facility]) Body weight 124 [lb_av] 124 [lb_av] eCW3 ([facility]) Body height 58 [in_i] 58 [in_i] eCW3 ([facility]) Diastolic blood 102 mm[Hg] 102 mm[Hg] eCW3 ([facility]) Systolic blood 171 mm[Hg] 171 mm[Hg] eCW3 ([facility]) Body temperature 97.8 [degF] 97.8 [degF] eCW3 ( [facility]) Heart rate 20 /min 20 /min eCW3 ([facility]) Body mass index 25.91 kg/m2 25.91 kg/m2 eCW3 (Renée rebollar (BMI) [Ratio] [facility]) Body weight 124 [lb_av] 124 [lb_av] eCW3 ([facility]) Body height 58 [in_i] 58 [in_i] eCW3 ([facility]) Patient Treatment Plan of Care Planned Activity Planned Date Details Description Data Source (s) benzonatate 100 MG Oral 05/30/2019 eCW3 ([facility] Capsule [Tessalon Perles] 12:00:00 AM [facility]) benzonatate 100 MG Oral 05/30/2019 eCW3 ([facility] Capsule [Tessalon Perles] 12:00:00 AM [facility]) benzonatate 100 MG Oral 05/30/2019 eCW3 ([facility] Capsule [Tessalon Perles] 12:00:00 AM [facility]) 200 ACTUAT Albuterol 0.09 04/15/2019 eC W3 ([facility] MG/ACTUAT Metered Dose 12:00:00 AM [facility]) Inhaler [Ventolin] 200 ACTUAT Albuterol 0.09 04/15/2019 eC W3 ([facility] MG/ACTUAT Metered Dose 12:00:00 AM [facility]) Inhaler [Ventolin] 200 ACTUAT Albuterol 0.09 04/15/2019 eC W3 ([facility] MG/ACTUAT Metered Dose 12:00:00 AM [facility]) Inhaler [Ventolin] montelukast 10 MG Oral Tablet 03/14/2019 eCW3 ([facility] 12:00:00 AM [facility]) montelukast 10 MG Oral Tablet 03/14/2019 eCW3 ([facility] 12:00:00 AM [facility]) montelukast 10 MG Oral Tablet 03/14/2019 eCW3 ([facility] 12:00:00 AM [facility]) Rosuvastatin calcium 20 MG 03/03/2019 e CW3 ([facility] Oral Tablet [Crestor] 12:00:00 AM [facility]) Rosuvastatin calcium 20 MG 03/03/2019 e CW3 ([facility] Oral Tablet [Crestor] 12:00:00 AM [facility]) Rosuvastatin calcium 20 MG 03/03/2019 e CW3 ([facility] Oral Tablet [Crestor] 12:00:00 AM [facility]) Spironolactone 50 MG Oral 12/17/2018 eC W3 ([facility] Tablet 12:00:00 AM [facility]) Metformin hydrochloride 500 12/17/2018 eCW3 ([facility] MG Oral Tablet 12:00:00 AM [facility]) Spironolactone 50 MG Oral 12/17/2018 eC W3 ([facility] Tablet 12:00:00 AM [facility]) Metformin hydrochloride 500 12/17/2018 eCW3 ([facility] MG Oral Tablet 12:00:00 AM [facility] e) Metformin hydrochloride 500 12/17/2018 eCW3 ([facility] MG Oral Tablet 12:00:00 AM [facility]) Spironolactone 50 MG Oral 12/17/2018 eC W3 ([facility] Tablet 12:00:00 AM [facility]) Hydrochlorothiazide 25 MG / 11/26/2018 eCW3 ([facility] Losartan Potassium 100 MG 12:00:00 AM [facility]) Oral Tablet Hydrochlorothiazide 25 MG / 11/26/2018 eCW3 ([facility] Losartan Potassium 100 MG 12:00:00 AM [facility]) Oral Tablet Hydrochlorothiazide 25 MG / 11/26/2018 eCW3 ([facility] Losartan Potassium 100 MG 12:00:00 AM [facility]) Oral Tablet
[2019-12-14] MEDS ORDERED: CHONDROITIN SU A/HYALUR SOD 1 KIT ONE (07:11)
[2019-12-14] MEDS ORDERED: LIDOCAINE HCL/PF 1% SDV 5ML VIAL ONE (07:16)
[2019-12-14] MEDS ORDERED: TETRACAINE 0.5% OPHTH SOLN 2 ML BOTTLE ONE (07:16)
[2019-12-14] MEDS ORDERED: POVIDONE-IODINE 5% OPHTHALMIC PREP 30 ML SOLUTION ONE (07:16)
[2019-12-14] MEDS ORDERED: ACETAMINOPHEN 325 MG TABLET (FP) PO PRN (08:28)
[2019-12-14] MEDS ORDERED: TROPICAMIDE 1% OPHTH SOLN 15 ML BOTTLE OP SCH (08:30)
[2019-12-14] MEDS ORDERED: KETOROLAC TROMETHAMINE 0.5% EYE DROP 1 DROP DROPS ONE (08:46)
[2019-12-14] MEDS ORDERED: OFLOXACIN 0.3% OPHTHALMIC SOLUTION 5 ML BOTTLE ONE (08:46)
[2019-12-14] MEDS ORDERED: CYCLOPENTOLATE HCL 1% OPHTH SOLN 2 ML BOTTLE ONE (08:46)
[2019-12-14] MEDS ORDERED: TROPICAMIDE 1% OPHTH SOLN 15 ML BOTTLE ONE (08:46)
[2019-12-14] MEDS: KETOROLAC TROMETHAMINE 0.5% EYE DROP 1 DROP DROPS OP SCH ×3 (09:10→09:20)
[2019-12-14] MEDS: PHENYLEPHRINE 2.5% OPHTH SOLN 15 ML BOTTLE OP SCH ×3 (09:10→09:20)
[2019-12-14] MEDS ORDERED: TROPICAMIDE 1% OPHTH SOLN 15 ML BOTTLE OP ONE ×3 (09:10→09:20)
[2019-12-14] MEDS: OFLOXACIN 0.3% OPHTHALMIC SOLUTION 5 ML BOTTLE OP SCH ×3 (09:10→09:20)
[2019-12-14] MEDS: CYCLOPENTOLATE HCL 1% OPHTH SOLN 2 ML BOTTLE OP SCH ×3 (09:10→09:20)
[2019-12-14] MEDS ORDERED: PROPOFOL 20 ML ONE (11:19)
[2019-12-14] MEDS ORDERED: BUPIVACAINE HCL/PF 0.75% 10 ML VIAL RB ONE (11:26)
[2019-12-14] MEDS ORDERED: LIDOCAINE HCL/PF 2% SDV 5ML VIAL PNB ONE (11:26)
[2019-12-14] MEDS ORDERED: POVIDONE-IODINE 5% OPHTHALMIC PREP 30 ML SOLUTION OD ONE (11:38)
[2019-12-14] MEDS ORDERED: TRYPAN BLUE 0.5 ML DISP.SYRIN IO ONE (11:43)
[2019-12-14] MEDS ORDERED: CHONDROITIN SU A/HYALUR SOD 1 KIT IO ONE (11:43)
[2019-12-14] MEDS ORDERED: LIDOCAINE HCL 1% PRESERVATIVE FREE - 30ML VIAL IO ONE (11:43)
[2019-12-14] MEDS ORDERED: BSS (NA/CA/MG/K) BALANCED SALT SOLUTION OPHTH SOLN 15 ML BOTTLE OD ONE (11:43)
[2019-12-14] MEDS ORDERED: EPINEPHrine/PF 1 MG/1 ML (1:1,000) AMPULE SQ ONE (11:52)
[2019-12-14 12:43] VITALS: BP 138/92; PULSE 76; TEMP 96.9
--- NOTE | 2019-12-15 15:39 | OP ---
DATE OF OPERATION: 12/14/2019 PREOPERATIVE DIAGNOSIS: Mature cataract right eye. POSTOPERATIVE DIAGNOSIS: Mature cataract right eye. PROCEDURE: Phacoemulsification of right cataract with capsular staining with Trypan blue and posterior chamber intraocular lens implantation. LENS USED: [id number] 23.0 diopter power, serial number [id number] ANESTHESIA: Peribulbar/modified [place]int/MAC COMPLICATIONS: None. DESCRIPTION OF THE PROCEDURE: The patient was brought to the operating room. The correct eye identified along with the operative site, as well as correct intraocular lens [place]. She was then given a peribulbar block under sedation with 5 mL of 1:1 mixture of 0.75% lidocaine and 0.75% bupivacaine. Then, 2 mL of the same mixture was given as a modified lens eyelid block. The patient was about to be prepped and draped in the usual sterile fashion when she started to cough. The patient was not fully responsive due to the propofol which given for the block. The wrist restraints were removed, and the patient was sat upright until the patient stopped coughing. An attempt was made to communicate with patient, however, she did not seem fully responsive. After about 5-10 minutes when the patient stopped coughing, she was reclined again. The eye was then prepped and draped in the usual sterile fashion including 5% Betadine solution in the conjunctival sac and an eyelid drape. An eyelid speculum was then placed into the right eye. The patient seemed to be squeezing and valsalving, so she was instructed with a loading supervisor to avoid straining, and that the surgery could be paused if she needed to clear her throat. The patient seemed to understand and the surgery was continued. A paracentesis port was created and 0.5 mL of preservative-free lidocaine 1% was given intracamerally. An air bubble was then placed in the eye and the capsule was stained with Trypan blue. Viscoelastic was injected into the eye and a temporal clear corneal wound was created. The Viscoelastic seemed to be prolapsing through the main incision despite a good length tunnel. The patient was again asked if she was holding her breath and seemed to be. She was again asked to cough if she had to and clear her throat. The iris, however, began to prolapse. An attempt was made to push the iris back in with Viscoelastic and this was initially successful, but again the iris began to prolapse again without any instruments in the wound. Some fluid/viscoelastic was released from the paracentesis and an attempt was made to push the iris back in. This was again successful and a continuous circular Capsulorrhexis was performed. However, there was positive pressure again with iris prolapse., but this did not interfere with the completion of the continuous circular Capsulorrhexis. The iris was then reposited using Viscoelastic as well as by decompressing through the paracentesis. However, a small amount of iris atrophy was already noted. The nucleus was then gently hydrodissected and then the phacoemulsification probe was placed inside the eye, keeping the iris inside the eye. The nucleus was then removed using a divide and conquer technique. The majority of the grooving was performed in the capsular bag. Care was taken to keep most of the phacoemulsification energy in the iris plane to avoid any damage to the corneal endothelium as the nucleus was noted to be dense. At the end of the procedure, there was no significant cortical material noted, but the IA tip was used to remove any residual cortical material in the fornix of the capsular bag. Viscoelastic was injected to inflate the capsular bag. The lens was injected into the capsular bag. A single 10-0 nylon suture was placed in the clear corneal wound and the wound was stromal hydrated. A second paracentesis port was created inferiorly and using bimanual irrigation aspiration, Viscoelastic was cleared from the eye. The other 2 paracenteses were then stromal hydrated, however, the anterior chamber did not appear to be stable. The superior paracentesis was then also sutured with a single 10- 0 nylon suture. The anterior chamber was then formed again and this time the anterior chamber was noted to be stable and no leakage noted from any wound. Topical vancomycin given. The eye patched and shielded and patient discharged from the operating room in a stable condition. KEISHA CRUZ M.D. [id number] MTDD
== END 2019-12-14 13:10 | disposition home or self-care (01) ==
LOC: JASU-SURG 04:34
PROVIDERS: ATTEND Ophthalmology
PROC: 08RJ3JZ Replacement of Right Lens with Synthetic Substitute, Percutaneous Approach (ICD-10-PCS; principal; 2019-12-14 11:00)
DX: H25.091 Other age-related incipient cataract, right eye (principal); H21.89 Other specified disorders of iris and ciliary body
CPT/HCPCS: 82962

== ENCOUNTER 2019-12-28 05:33 | Day surgery (SDC) | payer OTHER ==
[2019-12-27 16:12] VITALS: BMI 23.4
[~2019-12-28 05:33] MED LIST changes: +ACETAMINOPHEN 325 MG TABLET (FP) PO PRN; -BSS (NA/CA/MG/K) BALANCED SALT SOLUTION OPHTH SOLN 15 ML BOTTLE OD ONE; +BSS (NA/CA/MG/K) BALANCED SALT SOLUTION OPHTH SOLN 15 ML BOTTLE OS ONE; +CYCLOPENTOLATE HCL 1% OPHTH SOLN 2 ML BOTTLE OP SCH; +KETOROLAC TROMETHAMINE 0.5% EYE DROP 1 DROP DROPS OP SCH; +OFLOXACIN 0.3% OPHTHALMIC SOLUTION 5 ML BOTTLE OP SCH; +PHENYLEPHRINE 2.5% OPHTH SOLN 15 ML BOTTLE OP SCH; -POVIDONE-IODINE 5% OPHTHALMIC PREP 30 ML SOLUTION OD ONE; +POVIDONE-IODINE 5% OPHTHALMIC PREP 30 ML SOLUTION OS ONE; +TROPICAMIDE 1% OPHTH SOLN 15 ML BOTTLE OP SCH
[2019-12-28] MEDS ORDERED: CHONDROITIN SU A/HYALUR SOD 1 KIT ONE ×2 (07:16→07:24)
[2019-12-28] MEDS ORDERED: EPINEPHrine/PF 1 MG/1 ML (1:1,000) AMPULE ONE (07:22)
[2019-12-28] MEDS ORDERED: LIDOCAINE HCL/PF 1% SDV 5ML VIAL ONE (07:22)
[2019-12-28] MEDS ORDERED: TETRACAINE 0.5% OPHTH SOLN 2 ML BOTTLE ONE (07:22)
[2019-12-28] MEDS ORDERED: POVIDONE-IODINE 5% OPHTHALMIC PREP 30 ML SOLUTION ONE (07:22)
[2019-12-28] MEDS ORDERED: LIDOCAINE HCL/PF 2% SDV 5ML VIAL ONE ×2 (07:43→10:56)
[2019-12-28] MEDS ORDERED: BUPIVACAINE HCL/PF 0.75% 10 ML VIAL ONE (07:43)
[2019-12-28] MEDS ORDERED: OFLOXACIN 0.3% OPHTHALMIC SOLUTION 5 ML BOTTLE ONE (09:09)
[2019-12-28] MEDS ORDERED: CYCLOPENTOLATE HCL 1% OPHTH SOLN 2 ML BOTTLE ONE (09:10)
[2019-12-28] MEDS ORDERED: TROPICAMIDE 1% OPHTH SOLN 15 ML BOTTLE ONE (09:10)
[2019-12-28] MEDS ORDERED: KETOROLAC TROMETHAMINE 0.5% EYE DROP 1 DROP DROPS ONE (09:10)
[2019-12-28] MEDS ORDERED: MIDAZOLAM HCL 2 MG/2 ML SINGLE DOSE VIAL ONE (10:43)
[2019-12-28] MEDS ORDERED: LIDOCAINE HCL/PF 2% SDV 5ML VIAL PNB ONE (10:54)
[2019-12-28] MEDS ORDERED: BUPIVACAINE HCL/PF 0.75% 10 ML VIAL RB ONE (10:54)
[2019-12-28] MEDS ORDERED: TETRACAINE 0.5% OPHTH SOLN 2 ML BOTTLE OS ONE (10:58)
[2019-12-28] MEDS ORDERED: POVIDONE-IODINE 5% OPHTHALMIC PREP 30 ML SOLUTION OS ONE (10:59)
[2019-12-28] MEDS ORDERED: LIDOCAINE HCL 1% PRESERVATIVE FREE - 30ML VIAL IO ONE (11:04)
[2019-12-28] MEDS ORDERED: BSS (NA/CA/MG/K) BALANCED SALT SOLUTION OPHTH SOLN 15 ML BOTTLE OS ONE (11:04)
[2019-12-28] MEDS ORDERED: CHONDROITIN SU A/HYALUR SOD 1 KIT IO ONE (11:04)
[2019-12-28] MEDS ORDERED: TRYPAN BLUE 0.5 ML DISP.SYRIN IO ONE (11:04)
[2019-12-28] MEDS ORDERED: EPINEPHrine/PF 1 MG/1 ML (1:1,000) AMPULE SQ ONE (11:11)
[2019-12-28 12:11] VITALS: TEMP 97.1
[2019-12-28 13:44] VITALS: BP 105/70; PULSE 100
== END 2019-12-28 12:35 | disposition home or self-care (01) ==
LOC: JASU-SURG 05:33
PROVIDERS: ATTEND Ophthalmology
PROC: 08RK3JZ Replacement of Left Lens with Synthetic Substitute, Percutaneous Approach (ICD-10-PCS; principal; 2019-12-28 11:00)
DX: H26.9 Unspecified cataract (principal)

== ENCOUNTER 2022-06-01 15:16 | Emergency (ER) | payer OTHER ==
[2022-06-01 15:24] VITALS: RESP 18; TEMP 98; BMI 29.2
[2022-06-01 17:36] LABS: BASO % 1.2 % (0-2.0); EOS % 1.5 % (0-4.5); HEMATOCRIT 42.3 % (32.4-45.2); HEMOGLOBIN 14.5 GM/dL (10.7-15.3); LYMPH % 18.7 % (8-40); MCH 29.7 pg (25.7-33.7); MCHC 34.3 g/dl (32.0-36.0); MEAN CELL VOLUME 86.6 fl (80-96); MEAN PLT VOLUME 7.3 fl (7.5-11.1); MONO % 11.9 % (3.8-10.2); NEUT % 66.7 % (42.8-82.8); PLATELET COUNT 386 10^3/uL (134-434); RBC 4.88 M/mm3 (3.60-5.2); WHITE BLOOD COUNT 9.5 K/mm3 (4.0-10.0)
[2022-06-01 17:46] LABS: INR 1.1 (0.83-1.09); PROTHROMBIN TIME (PATIENT) 12.7 SEC (9.7-13.0)
[2022-06-01 17:49] LABS: ACTIVATED PTT 31.1 SECONDS (25.2-36.5)
[2022-06-01 17:53] LABS: ALBUMIN 3.8 g/dl (3.4-5.0); BLOOD UREA NITROGEN 19.4 mg/dL (7-18); CALCIUM 10.1 mg/dL (8.5-10.1)
[2022-06-01 17:56] LABS: CREATININE 1.1 mg/dL (0.55-1.3)
[2022-06-01 17:58] LABS: BILIRUBIN,TOTAL 0.3 mg/dL (0.2-1); TOT PROT 8.1 g/dl (6.4-8.2)
[2022-06-01 18:58] VITALS: BP 131/84; PULSE 95
== END 2022-06-01 19:12 | disposition home or self-care (01) ==
LOC: JER 15:16
DX: R23.3 Spontaneous ecchymoses (principal)
CPT/HCPCS: 36415; 80053; 85025; 85610; 85730; 99283-25